=== PATIENT | female | born 1990 | race Caucasian/White ===

== ENCOUNTER 2017-10-26 22:07 | Emergency (ER) | payer OTHER ==
[2017-10-26] MEDS: ACETAMINOPHEN 325 MG TAB PO (22:26)
== END 2017-10-26 22:30 | disposition home or self-care (01) ==
LOC: E/R 22:07
DX: S09.90XA Unspecified injury of head, initial encounter (principal); V49.49XA Driver injured in collision with other motor vehicles in traffic accident, initial encounter
CPT/HCPCS: 71045; 99283

== ENCOUNTER 2017-10-28 05:18 | Emergency (ER) | payer OTHER ==
[2017-10-28] MEDS: SOD CHLORIDE 0.9% 1,000 ML IV (06:13)
[2017-10-28] MEDS: METOCLOPRAMIDE 10 MG INJ IV (06:34)
[2017-10-28] MEDS: DIPHENHYDRAMINE 50 MG INJ IV (06:34)
[2017-10-28 07:28] LABS: ADD MAN DIFF? NO
[2017-10-28 07:37] LABS: WHITE BLOOD COUNT 15.4 10^3/ul (4.8-10.8)
[2017-10-28 07:37] LABS: BASOPHILS % 0.2 % (0.0-2.0); EOSINOPHILS % 0.1 % (0.0-7.0); HEMATOCRIT 40.2 % (37.0-47.0); HEMOGLOBIN 12.7 g/dl (12.0-16.0); LYMPHOCYTES # 1.3 10^3/ul (0.8-2.9); LYMPHOCYTES % 8.5 % (15.0-51.0); MEAN CORPUSCULAR HEMOGLOBIN 24.2 pg (29.0-33.0); MEAN CORPUSCULAR HGB CONC 31.6 g/dl (32.0-37.0); MEAN CORPUSCULAR VOLUME 76.7 fl (82.0-101.0); MEAN PLATELET VOLUME 10.7 fl (7.4-10.4); MONOCYTE # 0.5 10^3/ul (0.3-0.9); MONOCYTES % 3.1 % (0.0-11.0); NEUTROPHIL # 13.5 10^3/ul (1.6-7.5); NEUTROPHILS % 87.7 % (39.0-77.0); PLATELET COUNT 363 10^3/UL (140-415); RED BLOOD COUNT 5.24 10^6/ul (4.20-5.40); RED CELL DISTRIBUTION WIDTH 14.4 % (11.5-14.5)
[2017-10-28 07:43] LABS: ALANINE AMINOTRANSFERASE 46 IU/L (13-69); ALBUMIN 4.1 g/dl (3.3-4.9); ALKALINE PHOSPHATASE 128 IU/L (42-121); ASPARTATE AMINO TRANSFERASE 44 IU/L (15-46); BILIRUBIN,INDIRECT 0.2 mg/dl (0-1.1); BILIRUBIN,TOTAL 0.2 mg/dl (0.2-1.3); BLOOD UREA NITROGEN 21 mg/dl (7-20); CALCIUM 9.7 mg/dl (8.4-10.2); CARBON DIOXIDE 30 mmol/L (21-31); CHLORIDE 109 mmol/L (97-110); CREATININE 0.63 mg/dl (0.44-1.00); GLUCOSE 160 mg/dl (70-220); LIPASE 69 U/L (23-300); SODIUM 152 mmol/L (135-144); TOTAL PROTEIN 7.8 g/dl (6.1-8.1)
[2017-10-28 07:50] LABS: ANION GAP 17 (8-16)
[2017-10-28] MEDS: ONDANSETRON 4 MG INJ IV (07:56)
[2017-10-28] MEDS: KETOROLAC 15 MG INJ IV (07:56)
[2017-10-28 08:02] LABS: POSITIVE DIFF @See below
[2017-10-28 08:57] LABS: OCCULT BLOOD STOOL POSITIVE (NEGATIVE)
[2017-10-28] MEDS: PANTOPRAZOLE 40 MG INJ IV (09:42)
== END 2017-10-28 10:09 | disposition home or self-care (01) ==
LOC: E/R 05:18
DX: R51 Headache (principal); R11.2 Nausea with vomiting, unspecified; F11.23 Opioid dependence with withdrawal; E86.0 Dehydration; E87.0 Hyperosmolality and hypernatremia; R74.8 Abnormal levels of other serum enzymes; K92.2 Gastrointestinal hemorrhage, unspecified
CPT/HCPCS: 36415; 70450; 80053; 81025; 82270; 83690; 85025; 86850; 86900; 86901; 96374; 96375; 99285-25